=== PATIENT | male | born 1975 | race Two or more races ===

== ENCOUNTER 2018-09-25 17:07 | Observation (INO) | payer OTHER ==
[2018-09-25] MEDS ORDERED: NS 2,000 ML IV ONE (17:14)
--- NOTE | 2018-09-25 17:18 | EDPHY ---
H & P Time Seen by Provider: 09/25/18 17:15 HPI/ROS: HPI CHIEF COMPLAINT: Syncope HISTORY OF PRESENT ILLNESS: 42-year-old male, predominantly Kyrgyz-speaking only, interpreter deaf was used for history, review of systems and physical exam. He arrives to the emergency room by EMS for syncopal episode. Patient states he was in the bathroom washing his hands he was standing in front of the sink when he got lightheaded and then had a syncopal episode. He fell hit the ground. He denies any chest pain or shortness of breath or palpitations. He does state he has been sick with a cough. He does arrived to the emergency room is febrile. States he did not eat anything today. He states since arriving to the emergency room is feeling better. Denies chest pain or shortness of breath. No history of syncope. Denies any history of cardiovascular disease. Denies drugs alcohol tobacco. Denied palpitations during this event. Patient has not had any vomiting or diarrhea. He arrives to emergency room denies chest pain or shortness of breath. Does state he has been coughing. Fever today. interpreter deaf was used. Past Medical History: Denies medical history Past Surgical History: Denies surgical history Social History: Denies drugs alcohol tobacco. Family History: Noncontributory ROS REVIEW OF SYSTEMS: 10 Systems were reviewed and negative with the exception of the elements mentioned in the history of present illness. Exam Constitutional appears well nontoxic no acute distress triage nursing summary reviewed, vital signs reviewed, awake/alert. Vital signs stable noted be febrile upon arrival. Noted be tachycardic and temperature 38 degrees. Eyes normal conjunctivae and sclera, EOMI, PERRLA. HENT normal inspection, atraumatic, moist mucus membranes, no epistaxis, neck supple/ no meningismus, no raccoon eyes. Respiratory clear to auscultation bilaterally, normal breath sounds, no respiratory distress, no wheezing. Cardiovascular rate normal, regular rhythm, no murmur, no edema, distal pulses normal. Gastrointestinal soft, non-tender, no rebound, no guarding, normal bowel sounds, no distension, no pulsatile mass. Genitourinary no CVA tenderness. Musculoskeletal no midline vertebral tenderness, full range of motion, no calf swelling, no tenderness of extremities, no meningismus, good pulses, neurovascularly intact. Skin pink, warm, & dry, no rash, skin atraumatic. Neurologic awake, alert and oriented x 3, AAOx3, moves all 4 extremities equally, motor intact, sensory intact, CN II-XII intact, normal cerebellar, normal vision, normal speech. Psychiatric normal mood/affect. Heme/Lymph/Immune no lymphadenopathy. Differential Diagnosis: Includes but is not limited to in a particular order vasovagal syncope, orthostatic syncope, dehydration, electrolyte disturbance, cardiac arrhythmia, acute febrile illness, influenza, pneumonia Medical Decision Making: Plan for this patient IV establishment IV fluid bolus , is noted he is febrile here Tylenol for fever control, chest x-ray for syncope , blood work, troponin, CT scan head without contrast given that he fell and hit his head. Re-evaluation: EKG interpretation by me on record in [employer] system. Impression time of EKG 17 10, sinus tach 116, no acute ischemia. AVL has some ST depression in the 1st 2 beats most likely wandering baseline. No ST elevation. This EKG appears somewhat abnormal I did have Dr. Vazquez with Cardiology look at this EKG and review it. He looked at in detail. He is not concerned about it. He does not believe it shows any acute ischemia. CT scan head without contrast negative for acute traumatic injury called to me by Dr. Pate [phone]: Patient continues to be tachycardic, plan for hospital admission overnight. Syncope tachycardia. Will consult the hospitalist service [phone]: Consult the hospitalist service Dr. Grimes who agrees to admit. Patient agrees for admission. Source: Patient, EMS Constitutional: Initial Vital Signs Temperature (C) 38.1 C 09/25/18 17:16 Heart Rate 114 H 09/25/18 17:16 Respiratory Rate 20 09/25/18 17:16 Blood Pressure 139/83 H 09/25/18 17:16 O2 Sat (%) 93 09/25/18 17:16 O2 Delivery Mode Room Air Allergies/Adverse Reactions: No Known Allergies Allergy (Unverified 09/25/18 17:16) Home Medications: Medication Instructions Recorded NK [No Known Home Meds] 09/26/18 Medical Decision Making - Data Points Laboratory Results: Laboratory Results 09/25/18 17:20 09/25/18 17:20 Medications Given: Discontinued Medications Acetaminophen (Tylenol) 1,000 mg PO EDNOW ONE Stop: 09/25/18 17:28 Last Admin: 09/25/18 17:38 Dose: 1,000 mg Enoxaparin Sodium (Lovenox) 40 mg SC DAILY MANUEL Stop: 03/25/19 08:59 Last Admin: 09/26/18 09:33 Dose: 40 mg Sodium Chloride (Ns) 2,000 mls @ 0 mls/hr IV EDNOW ONE; Wide Open PRN Reason: Protocol Stop: 09/25/18 17:15 Last Admin: 09/25/18 17:20 Dose: 2,000 mls Potassium Chloride/Sodium Chloride (Ns W/ 20 Kcl/L) 1,000 mls @ 100 mls/hr IV CONT MANUEL Stop: 03/24/19 22:29 Last Admin: 09/26/18 09:26 Dose: 1,000 mls Sodium Chloride (Ns) 1,000 mls @ 3,000 mls/hr IV ONCE ONE Stop: 09/26/18 11:56 Last Admin: 09/26/18 11:40 Dose: 1,000 mls Influenza Virus Vaccine Quadrival (Flulaval Quad [id number] (6mo+)) 0.5 ml IM .ONCE ONE Stop: 09/26/18 09:36 Last Admin: 09/26/18 11:13 Dose: 0.5 ml Pneumococcal Polyvalent Vaccine (Pneumovax 23) 0.5 ml IM .ONCE ONE Stop: 09/26/18 12:01 Last Admin: 09/26/18 12:22 Dose: 0.5 ml Point of Care Test Results: Chemistry 09/25/18 17:16 POC Troponin I 0.00 ng/mL ng/mL (0.00-0.08) Departure - Departure Disposition: [facility] Acute Clinical Impression: Syncope, Dehydration, Abnormal EKG Condition: Fair
[2018-09-25] MEDS ORDERED: ACETAMINOPHEN 500 MG TAB PO ONE (17:27)
[2018-09-25 17:36] LABS: PLATELET COUNT 296 10^3/uL (150-400)
[2018-09-25 17:40] LABS: INR 1.07 (0.83-1.16); PROTIME(PATIENT) 14.1 SEC (12.0-15.0)
[2018-09-25] MEDS ORDERED: ONDANSETRON 4 MG/2 ML VIAL IVP PRN (22:29)
[2018-09-25] MEDS ORDERED: ONDANSETRON DISINTEGRATING 4 MG TAB PO PRN (22:29)
[2018-09-25] MEDS ORDERED: ACETAMINOPHEN 325 MG TAB PO PRN (22:29)
--- NOTE | 2018-09-25 23:17 | PDGENHP ---
History and Physical - Chief Complaint Syncope - History of Present Illness 42 yo M w/ no PMHx presents after syncopal event. He tells me he got up and went to the bathroom to urinate when he felt dizzy and passed out. He thinks he only lost consciousness for a few seconds. He denies chest pain or palpitations. He felt dizzy and sweaty after the event but denies lethargy or confusion. He tells me last night he had several beers and drank minimal fluids today. There were no bystanders present to describe the event. He was brought to the ED by EMS. In the ED he was noted to be febrile and tachycardic. He states the fever started today and also a mild cough. His work-up in the ED is otherwise mostly unremarkable. He is currently asymptomatic and being admitted for observation. Case discussed with ED physician Dr. Aldana; records reviewed and summarized above. History Information - Allergies/Home Medication List Allergies/Adverse Reactions: No Known Allergies Allergy (Unverified 09/25/18 17:16) Home Medications: NK [No Known Home Meds] 09/25/18 [Last Taken Unknown] I have personally reviewed and updated: family history, medical history - Past Medical History no pertinent PMH - Surgical History Reports: no pertinent surgical hx - Family History Additional family history: Diabetes - Social History Smoking Status: Never smoked Review of Systems Review of Systems: ROS: 10pt was reviewed & negative except for what was stated in HPI & below Physical Exam Physical Exam: Temp Pulse Resp BP Pulse Ox 36.7 C 80 16 122/79 H 92 09/25/18 22:52 09/25/18 22:52 09/25/18 22:52 09/25/18 22:52 09/25/18 22:52 Constitutional: no apparent distress, not in pain Eyes: PERRL, EOMI Ears, Nose, Mouth, Throat: moist mucous membranes, no oral mucosal ulcers Cardiovascular: regular rate and rhythym, no murmur, rub, or gallop Respiratory: no respiratory distress, clear to auscultation Gastrointestinal: normoactive bowel sounds, soft, non-tender abdomen Skin: warm, normal color Musculoskeletal: full muscle strength, no muscle tenderness Neurologic: AAOx3, CN II-XII Intact Psychiatric: interacting appropriately, not anxious Lab Data & Imaging Review 09/25/18 17:20 09/25/18 17:20 WBC 9.34 10^3/uL (3.80-9.50) 09/25/18 17:20 RBC 4.94 10^6/uL (4.40-6.38) 09/25/18 17:20 Hgb 15.0 g/dL (13.7-17.5) 09/25/18 17:20 Hct 42.0 % (40.0-51.0) 09/25/18 17:20 MCV 85.0 fL (81.5-99.8) 09/25/18 17:20 MCH 30.4 pg (27.9-34.1) 09/25/18 17:20 MCHC 35.7 g/dL (32.4-36.7) 09/25/18 17:20 RDW 13.9 % (11.5-15.2) 09/25/18 17:20 Plt Count 296 10^3/uL (150-400) 09/25/18 17:20 MPV 9.8 fL (8.7-11.7) 09/25/18 17:20 Neut % (Auto) 67.0 % (39.3-74.2) 09/25/18 17:20 Lymph % (Auto) 15.4 % (15.0-45.0) 09/25/18 17:20 Bureau % (Auto) 16.0 % (4.5-13.0) H 09/25/18 17:20 Eos % (Auto) 0.2 % (0.6-7.6) L 09/25/18 17:20 Baso % (Auto) 0.4 % (0.3-1.7) 09/25/18 17:20 Nucleat RBC Rel Count 0.0 % (0.0-0.2) 09/25/18 17:20 Absolute Neuts (auto) 6.26 10^3/uL (1.70-6.50) 09/25/18 17:20 Absolute Lymphs (auto) 1.44 10^3/uL (1.00-3.00) 09/25/18 17:20 Absolute Monos (auto) 1.49 10^3/uL (0.30-0.80) H 09/25/18 17:20 Absolute Eos (auto) 0.02 10^3/uL (0.03-0.40) L 09/25/18 17:20 Absolute Basos (auto) 0.04 10^3/uL (0.02-0.10) 09/25/18 17:20 Absolute Nucleated RBC 0.00 10^3/uL (0-0.01) 09/25/18 17:20 Immature Gran % 1.0 % (0.0-1.1) 09/25/18 17:20 Immature Gran # 0.09 10^3/uL (0.00-0.10) 09/25/18 17:20 PT 14.1 SEC (12.0-15.0) 09/25/18 17:20 INR 1.07 (0.83-1.16) 09/25/18 17:20 APTT 25.7 SEC (23.0-38.0) 09/25/18 17:20 Sodium 136 mEq/L (135-145) 09/25/18 17:20 Potassium 3.7 mEq/L (3.5-5.2) 09/25/18 17:20 Chloride 102 mEq/L (97-110) 09/25/18 17:20 Carbon Dioxide 24 mEq/l (22-31) 09/25/18 17:20 Anion Gap 10 mEq/L (6-14) 09/25/18 17:20 BUN 15 mg/dL (7-23) 09/25/18 17:20 Creatinine 0.9 mg/dL (0.7-1.3) 09/25/18 17:20 Estimated GFR > 60 09/25/18 17:20 Glucose 120 mg/dL (70-100) H 09/25/18 17:20 Calcium 9.5 mg/dL (8.5-10.4) 09/25/18 17:20 Magnesium 1.7 mg/dL (1.6-2.3) 09/25/18 17:20 Total Bilirubin 0.5 mg/dL (0.1-1.4) 09/25/18 17:20 Conjugated Bilirubin 0.2 mg/dL (0.0-0.5) 09/25/18 17:20 Unconjugated Bilirubin 0.3 mg/dL (0.0-1.1) 09/25/18 17:20 AST 30 IU/L (17-59) 09/25/18 17:20 ALT 35 IU/L (21-72) 09/25/18 17:20 Alkaline Phosphatase 77 IU/L (38-126) 09/25/18 17:20 POC Troponin I 0.00 ng/mL (0.00-0.08) 09/25/18 17:16 NT-Pro-B Natriuret Pep 28 pg/mL (0-125) 09/25/18 17:20 Total Protein 8.0 g/dL (6.3-8.2) 09/25/18 17:20 Albumin 4.7 g/dL (3.5-5.0) 09/25/18 17:20 Urine Color PALE YELLOW 09/25/18 18:20 Urine Appearance HAZY 09/25/18 18:20 Urine pH 6.0 (5.0-7.5) 09/25/18 18:20 Ur Specific [place] 1.010 (1.002-1.030) 09/25/18 18:20 Urine Protein NEGATIVE (NEGATIVE) 09/25/18 18:20 Urine Ketones NEGATIVE (NEGATIVE) 09/25/18 18:20 Urine Blood NEGATIVE (NEGATIVE) 09/25/18 18:20 Urine Nitrate NEGATIVE (NEGATIVE) 09/25/18 18:20 Urine Bilirubin NEGATIVE (NEGATIVE) 09/25/18 18:20 Urine Urobilinogen NEGATIVE EU (0.2-1.0) 09/25/18 18:20 Ur Leukocyte Esterase NEGATIVE (NEGATIVE) 09/25/18 18:20 Urine Glucose NEGATIVE (NEGATIVE) 09/25/18 18:20 Nasal Influenza A PCR NEGATIVE FOR FLU A (NEGATIVE) 09/25/18 17:20 Nasal Influenza B PCR NEGATIVE FOR FLU B (NEGATIVE) 09/25/18 17:20 Urine Opiates Screen NEGATIVE (NEGATIVE) 09/25/18 18:20 Urine Barbiturates NEGATIVE (NEGATIVE) 09/25/18 18:20 Ur Phencyclidine Scrn NEGATIVE (NEGATIVE) 09/25/18 18:20 Ur Amphetamine Screen NEGATIVE (NEGATIVE) 09/25/18 18:20 U Benzodiazepines Scrn NEGATIVE (NEGATIVE) 09/25/18 18:20 Urine Cocaine Screen NEGATIVE (NEGATIVE) 09/25/18 18:20 U Marijuana (THC) Screen NEGATIVE (NEGATIVE) 12/22/18 18:20 RSV (PCR) NEGATIVE FOR RSV (NEGATIVE) 09/25/18 17:20 Imaging Review: Imaging Impressions Chest X-Ray 09/25/18 17:14 Impression: Normal chest x-ray. Head CT 09/25/18 17:15 Impression: 1. No significant intracranial abnormality seen. If symptoms worsen, additional imaging may be necessary. Findings discussed with Giovany Royal MD at 18:16 hour, 09/25/2018. Visualized and Interpreted EKG results: Yes EKG Interpretation: Positive for: normal sinsus rhythm, other (Sinus tach; non- specific ST changes) Assessment & Plan Assessment: 42 yo M w/ no PMHx presents with syncope. Plan: 1. Syncope - Most likely due to orthostatic hypotension from dehydration and suspected viral illness. He denies chest pain or palpitations, troponin negative. ECG (personally reviewed/interpreted) does have non-specific ST changes but none consistent with ischemia. - Admit for observation - Continue mIVF overnight - Recheck orthostatic VS in the morning - Monitor on telemetry 2. Fever - T of 38.1 on arrival in the ED; he states this is new today and associated with mild, dry cough. WBC is normal and CXR (personally reviewed/ interpreted) does not demonstrate pneumonia. UA also within normal limits. This is likely viral in nature. - Observe off of antibiotics - APAP PRN for fever - Respiratory PCR ordered Diet - Regular Code - Full Ppx - LMWH Dispo - Admit under observation status
[2018-09-25] MEDS: NS W/ 20 KCl/L 1,000 ML IV SCH (23:48)
[2018-09-26 05:05] LABS: PLATELET COUNT 259 10^3/uL (150-400)
[2018-09-26] MEDS ORDERED: ENOXAPARIN 40 MG/0.4 ML SYR SC SCH (09:00)
[2018-09-26] MEDS: NS W/ 20 KCl/L 1,000 ML IV SCH (09:26)
[2018-09-26] MEDS ORDERED: PNEUMOCOCCAL 0.5ML VACCINE VIAL (PNEUMOVAX 23) IM ONE ×2 (09:35→12:00)
[2018-09-26] MEDS ORDERED: IOPAMIDOL (ISOVUE 370) 100 ML BTL IV ONE (09:42)
[2018-09-26 11:29] VITALS: BP 144/90
[2018-09-26] MEDS ORDERED: NS 1,000 ML IV ONE (11:37)
--- NOTE | 2018-09-26 13:41 | ECHO ---
[email or web address] [address] Main: [phone] Fax: Transthoracic Echocardiogram Name: TYE QUEVEDO MR#: [id number] Study Date: 09/26/2018 Study Time: 11:56 AM Date of : 1975 Age: 42 year(s) Height: 167.6 cm (66 in.) Weight: 80.29 kg (177 lb.) BSA: 1.9 m2 Gender: Male Examination: Echo Indication: tachycardia Image Quality: Adequate Contrast: Requested by: Hector Diaz BP: / Heart Rate: Rhythm: Indication: tachycardia Procedure Staff Machine Operator Hop Worker: Nhung Jenkins [facility] Reading Physician: Ravi Russ MD Requesting Provider: Conclusions: Normal size left ventricle. No LV hypertrophy. Normal global systolic LV function. EF is 65 %. No regional wall motion abnormality. Normal diastolic LV function. Normal size right ventricle. Normal RV function. The left atrium is normal in size. The right atrium is normal in size. Right ventricular systolic pressure measures 32mmHg. Normal size ascending aorta measuring 2.6 cm. No pericardial effusion. No pleural effusion. Measurements: Chambers Valvular Assessment AV/MV Valvular Assessment TV/PV Normal Normal Normal Name Value Range Name Value Range Name Value Range Ao Aimee (2D): 2.0 cm (1.4 cm-2.6 AV Vmax: 1.59 m/s (1 m/s-1.7 TR Vmax: 2.61 mm/s ( - ) cm) m/s) TR PGmax: 27 mmHg ( - ) IVSd (2D): 1.0 cm (0.6 cm-1.1 AV maxP mmHg ( - ) syst. PAP: 32 mmHg ( - ) cm) AV meanP mmHg ( - ) PV Vmax: 1.64 m/s (0.6 m/s-0.9 LVDd (2D): 4.1 cm (4.2 cm-5.9 NILS (VTI): 2.0 cm ( - ) m/s) cm) MV E Vmax: 1.08 m/s ( - ) PV PGmax: 11 mmHg ( - ) LVDs (2D): 2.6 cm (2.1 cm-4 MV A Vmax: 1.05 m/s ( - ) cm) MV E/A: 1.03 ( - ) LVPWd (2D): 0.9 cm (0.6 cm-1 cm) MV PHT: 0.048 s ( - ) LVOTd 1.9 cm 1.9 cm mm MVA (PHT): 4.6 s ( - ) Patient: TYE QUEVEDO Study Date: 09/26/2018 Page 1 of 2 11:56 AM LVEF (BP): 65 % (>=55 %) RVDd(2D): 2.7 cm (1.9 cm-3.8 cmmm) Continued Measurements: Chambers Valvular Assessment AV/MV Valvular Assessment TV/PV Name Value Name Value Name Value LADs: 3.0 cm MV DecTime: 165 m/s CVP (est.): 5 mmHg LADs Lon.7 cm MV E' Septal: 0.13 m/s LA Area: 15.9 cm2 MV E/E' Septal: 8.10 RA Area: 14.8 cm2 MV E/E' Lateral: 7.20 Additional Vessels Name Value Ao Ascendin.6 cm Inferior Vena Cava: 1.4 cm Findings: Left Ventricle: Normal size left ventricle. No LV hypertrophy. Normal global systolic LV function. EF is 65 %. No regional wall motion abnormality. Normal diastolic LV function. Right Ventricle: Normal size right ventricle. Normal RV function. Left Atrium: The left atrium is normal in size. Right Atrium: The right atrium is normal in size. Mitral Valve: The mitral valve is normal in appearance and function. Mild mitral valve regurgitation is present. No mitral stenosis is present. Aortic Valve: The aortic valve is tri-leaflet. There is no significant aortic valve regurgitation. No aortic valve stenosis is present. Tricuspid Valve: The tricuspid valve is normal in appearance and function. Trivial tricuspid valve regurgitation. The pulmonary artery pressure is normal. Right ventricular systolic pressure measures 32mmHg. Pulmonic Valve: The pulmonic valve is normal in appearance and function. Trivial pulmonic valve regurgitation. Aorta: The aorta is normal. Normal size aortic root measuring 2.0 cm. Normal size ascending aorta measuring 2.6 cm. IVC: The IVC is normal sized. Pericardium: No pericardial effusion. No pleural effusion. Exam Comments: Limited windows. (No Signature Object) Patient: TYE QUEVEDO Study Date: 09/26/2018 Page 2 of 2 11:56 AM [id number]
--- NOTE | 2018-09-26 15:53 | ASMTCMCOM ---
CM Note CM Note Notes: Case Management Chart Review for Discharge Support: Patient is 42 y/o male, predominately French speaking only, presented to [facility] ED for syncopal episode and fever. Patient currently admitted under observation for dehydration. Cailin listed in chart. Plan: TBD at this time. CM to follow. D/C Plan: TBD. Date Signed: 09/26/2018 03:52 PM Electronically Signed By:Katie Castanon
--- NOTE | 2018-09-26 17:38 | GDS ---
ALL DIAGNOSES: 1. Syncope. 2. Sinus tachycardia. 3. Borderline fever, T-max 38.1. HOSPITAL COURSE: This is a 42-year-old, otherwise healthy man, who presented with syncope. This was associated with micturition. He has had some borderline fever with a temperature 38.1 when he arrive d to the ED. He has also had borderline tachycardia with heart rates around 100. Workup has been negative thus far, including a normal white blood cell count (he has not received ant ibiotics here), normal urinalysis, negative tox screen, negative respiratory PCR, negative CT angiogr am for pulmonary embolus, unremarkable echocardiogram, electrocardiogram, which other than being tach ycardic is relatively unremarkable. Troponin was negative. I suspect that this is likely a viral sy ndrome; however there is no definitive diagnosis. Blood cultures and TSH are pending at the time of discharge. I have given him, as well as his very strict return precautions for any additional syncope, if h is tachycardia does not improve. Notably, he looks quite well and is denying any specific complaints , including full review of systems, as well as a normal physical exam. Recommend that he follow up w [facility] in 1 to 2 weeks. I recommend that he check his pulse and I have told him that hi s normal heart rate should return to below 90 in the next day to two. He understands this and will r eturn to the hospital with any additional or concerning features. He is, otherwise, discharged in st able condition. /[id number]/MODL
--- NOTE | 2018-09-27 06:28 | CPEKG ---
Test Reason : OPEN Blood Pressure : / mmHG Vent. Rate : 116 BPM Atrial Rate : 117 BPM P-R Int : 143 ms QRS Dur : 078 ms QT Int : 303 ms P-R-T Axes : 054 061 019 degrees QTc Int : 421 ms Sinus tachycardia Confirmed by Giovany Royal ([id number]) on 09/27/2018 6:27:33 AM Referred By: Confirmed By:Giovany Royal
== END 2018-09-26 16:47 | disposition home or self-care (01) ==
LOC: F3E 23:32
PROVIDERS: ADMIT Student in an Organized Health Care Education/Training Program; ATTEND Student in an Organized Health Care Education/Training Program
DX: E86.0 Dehydration (principal); R55 Syncope and collapse; R00.0 Tachycardia, unspecified; Z23 Encounter for immunization
CPT/HCPCS: 80305; 84484-ER; G0008; G0009; G0378; J1650; Q9967